=== PATIENT | female | born 1995 | race Caucasian/White ===

== ENCOUNTER 2021-08-17 03:13 | Emergency (ER) | payer MEDICARE, OTHER ==
[~2021-08-17] VITALS: Ht 162.5 cm; Wt 78.7 kg
[2021-08-17] MEDS ORDERED: ONDANSETRON 4 MG/2 ML (SDV) Z0FRAN IVP STA (03:25)
[2021-08-17] MEDS ORDERED: KETOROLAC 30 MG/ML VIAL IVP STA (03:25)
[2021-08-17] MEDS ORDERED: NS IV 1000 ML 1,000 ML IV STA (03:25)
[2021-08-17] MEDS ORDERED: ASPIRIN 81 MG CHEW (CHILDREN'S ASA) PO ONE (03:30)
[2021-08-17] MEDS ORDERED: Lithium (03:32)
[2021-08-17] MEDS ORDERED: Geodon (03:32)
--- NOTE | 2021-08-17 03:33 | ED General ---
General Chief Complaint: Chest Pain Stated Complaint: LEFT SHOULF PSIN/CHESTPAIN/SOB Source of Information: Patient, Spouse History of Present Illness Date Seen by Provider: August 17, 2021 Time Seen by Provider: 03:15 Initial Comments 26-year-old female presenting with complaints of left-sided chest pain. She states that this is going down her left arm. She has reproducible chest pain with palpation. This reportedly started around 215 to 220 a.m. They were lying in bed when the pain started. She reportedly was "passing out" and her significant other thought that she was having a heart attack. He made her get up and get dressed so that they could come here to the emergency department. She follows with providers in the [facility] for her care. She has nonepileptic seizures and neuro cardiogenic syncope. She has several medications that she takes but they are all for psychiatric care. She states that she is allergic to prednisone. She denies doing anything to cause the pain. She did not try taking anything at home for the pain Timing/Duration: 1 Hour Severity: Moderate Modifying Factors: worse with Movement Associated Systoms: Chest Pain (Chest wall pain on the left side reproducible with palpation and movement); No Cough, No Diaphoresis, No Fever/Chills, No Headaches, No Loss of Appetite, No Malaise; Nausea/Vomiting (Nausea but no vomiting); No Rash, No Seizure, No Shortness of Air, No Syncope Allergies and Home Medications Allergies Coded Allergies: prednisone (Verified Allergy, Unknown, 08/17/21) Patient Home Medication List Home Medication List Reviewed: Yes Ibuprofen (Ibuprofen) 800 Mg Tablet, 800 MG PO Q8H PRN for PAIN Prescribed by: OLEKSANDR REA on 08/17/21352 Methocarbamol (Methocarbamol) 750 Mg Tablet, 750 MG PO Q8H PRN for chest wall pain Prescribed by: OLEKSANDR REA on 08/17/21352 [[place]] , (Reported) Entered as Reported by: PENNY QUILES on 08/17/21331 Last Action: New Order [[place]] , (Reported) Entered as Reported by: PENNY QUILES on 08/17/21331 Last Action: New Order Review of Systems Review of Systems Constitutional: No fever EENTM: no symptoms reported Respiratory: no symptoms reported Cardiovascular: see HPI Gastrointestinal: see HPI Genitourinary: no symptoms reported Musculoskeletal: see HPI Skin: No rash Psychiatric/Neurological: See HPI (Feels like she is going to pass out); Denies Headache Hematologic/Lymphatic: Denies Blood Clots Past Bphxufk-Wdsdpu-Rdbsvp Hx Past Medical History Surgery/Hospitalization HX: Pseudoseizures, neurocardiogenic syncope Physical Exam Vital Signs Vital Signs - First Documented 08/17/21 03:18 Temp 36.0 Pulse 81 Resp 16 B/P (MAP) 113/73 (86) Pulse Ox 99 O2 Delivery Room Air Capillary Refill : Height, Weight, BMI Height: '" Weight: lbs. oz. kg; BMI Method: General Appearance: No Apparent Distress, Other (Patient is talking and answering questions but keeping her eyes closed laying on the bed) HEENT: PERRL/EOMI, Pharynx Normal Neck: Full Range of Motion, Normal Inspection, Non Tender, Supple Respiratory: Lungs Clear, Normal Breath Sounds, No Accessory Muscle Use, No Respiratory Distress, Other (Tender to palpation of the left chest wall and this also reproduces her chest pain that she is complaining of) Cardiovascular: Regular Rate, Rhythm, No Edema, No Murmur, Normal Peripheral Pulses Gastrointestinal: Normal Bowel Sounds, No Pulsatile Mass, Non Tender, Soft Rectal: Deferred Extremity: Normal Capillary Refill, Normal Inspection, No Pedal Edema Neurologic/Psychiatric: Alert, Oriented x3, family assistant II-XII Norm as Tested Skin: Normal Color, Warm/Dry Progress/Results/Core Measures Suspected Sepsis SIRS Temperature: Pulse: Respiratory Rate: Laboratory Tests 08/17/21 03:20: White Blood Count 9.3 Blood Pressure / Mean: Laboratory Tests 08/17/21 03:20: Creatinine 0.69, INR Comment 0.9, Platelet Count 252, Total Bilirubin 0.2 Results/Orders Lab Results Laboratory Tests Test 08/17/21 03:20 08/17/21 04:07 Range/Units White Blood Count 9.3 4.3-11.0 10^3/uL Red Blood Count 4.10 3.80-5.11 10^6/uL Hemoglobin 12.3 11.5-16.0 g/dL Hematocrit 37 35-52 % Mean Corpuscular Volume 91 80-99 fL Mean Corpuscular Hemoglobin 30 25-34 pg Mean Corpuscular Hemoglobin Concent 33 32-36 g/dL Red Cell Distribution Width 13.0 10.0-14.5 % Platelet Count 252 130-400 10^3/uL Mean Platelet Volume 12.6 H 9.0-12.2 fL Immature Granulocyte % (Auto) 0 % Neutrophils (%) (Auto) 36 L 42-75 % Lymphocytes (%) (Auto) 51 H 12-44 % Monocytes (%) (Auto) 9 0-12 % Eosinophils (%) (Auto) 3 0-10 % Basophils (%) (Auto) 1 0-10 % Neutrophils # (Auto) 3.4 1.8-7.8 10^3/uL Lymphocytes # (Auto) 4.7 H 1.0-4.0 10^3/uL Monocytes # (Auto) 0.9 0.0-1.0 10^3/uL Eosinophils # (Auto) 0.3 0.0-0.3 10^3/uL Basophils # (Auto) 0.1 0.0-0.1 10^3/uL Immature Granulocyte # (Auto) 0.0 0.0-0.1 10^3/uL Prothrombin Time 12.8 12.2-14.7 SEC INR Comment 0.9 0.8-1.4 Activated Partial Thromboplast Time 26 24-35 SEC Sodium Level 141 135-145 MMOL/L Potassium Level 3.4 L 3.6-5.0 MMOL/L Chloride Level 109 H 98-107 MMOL/L Carbon Dioxide Level 19 L 21-32 MMOL/L Anion Gap 13 5-14 MMOL/L Blood Urea Nitrogen 15 7-18 MG/DL Creatinine 0.69 0.60-1.30 MG/DL Estimat Glomerular Filtration Rate 123 BUN/Creatinine Ratio 22 Glucose Level 125 H 70-105 MG/DL Calcium Level 9.3 8.5-10.1 MG/DL Corrected Calcium 8.9 8.5-10.1 MG/DL Magnesium Level 2.1 1.6-2.4 MG/DL Total Bilirubin 0.2 0.1-1.0 MG/DL Aspartate Amino Transf (AST/SGOT) 16 5-34 U/L Alanine Aminotransferase (ALT/SGPT) 18 0-55 U/L Alkaline Phosphatase 46 40-136 U/L Myoglobin < 21.0 10.0-92.0 NG/ML Troponin I < 0.30 <0.30 NG/ML Pro-B-Type Natriuretic Peptide 12.1 <75.0 PG/ML Total Protein 7.0 6.4-8.2 GM/DL Albumin 4.5 3.2-4.5 GM/DL Lipase 22 8-78 U/L Serum Test, Qualitative NEGATIVE NEGATIVE Urine Color DARK YELLOW Urine Clarity CLEAR Urine pH 6.0 5-9 Urine Specific [place] >=1.030 1.016-1.022 Urine Protein NEGATIVE NEGATIVE Urine Glucose (UA) NEGATIVE NEGATIVE Urine Ketones TRACE H NEGATIVE Urine Nitrite NEGATIVE NEGATIVE Urine Bilirubin NEGATIVE NEGATIVE Urine Urobilinogen 0.2 < = 1.0 MG/DL Urine Leukocyte Esterase NEGATIVE NEGATIVE Urine RBC (Auto) 1+ H NEGATIVE Urine RBC 0-2 /HPF Urine WBC 0-2 /HPF Urine Crystals NONE /LPF Urine Bacteria FEW H /HPF Urine Casts PRESENT /LPF Urine Hyaline Casts RARE /LPF Urine Mucus LARGE H /LPF Urine Culture Indicated NO Urine Opiates Screen NEGATIVE NEGATIVE Urine Oxycodone Screen NEGATIVE NEGATIVE Urine Methadone Screen NEGATIVE NEGATIVE Urine Propoxyphene Screen NEGATIVE NEGATIVE Urine Barbiturates Screen NEGATIVE NEGATIVE Ur Tricyclic Antidepressants Screen NEGATIVE NEGATIVE Urine Phencyclidine Screen NEGATIVE NEGATIVE Urine Amphetamines Screen NEGATIVE NEGATIVE Urine Methamphetamines Screen NEGATIVE NEGATIVE Urine Benzodiazepines Screen NEGATIVE NEGATIVE Urine Cocaine Screen NEGATIVE NEGATIVE Urine Cannabinoids Screen NEGATIVE NEGATIVE My Orders Orders - OLEKSANDR REA MD Cbc With Automated Diff (08/17/21 03:25) Magnesium (08/17/21 03:25) Chest 1 View Ap/Pa Only (08/17/21 03:25) Ekg Tracing (08/17/21 03:25) Comprehensive Metabolic Panel (08/17/21 03:25) Myoglobin Serum (08/17/21 03:25) Protime With Inr (08/17/21 03:25) Partial Thromboplastin Time (08/17/21 03:25) O2 (08/17/21 03:25) Monitor-Rhythm Ecg Trace Only (08/17/21 03:25) Aspirin Chewable Tablet (Baby Aspirin Ch (08/17/21 03:30) Ed Iv/Invasive Line Start (08/17/21 03:25) Lipase (08/17/21 03:25) Troponin I Fs (08/17/21 03:25) Probnp Fs (08/17/21 03:25) Ns Iv 1000 Ml (Sodium Chloride 0.9%) (08/17/21 03:25) Ketorolac Injection (Toradol Injection) (08/17/21 03:25) Ondansetron Injection (Zofran Injectio (08/17/21 03:25) Hcg,Qualitative Serum (08/17/21 03:31) Ua Culture If Indicated (08/17/21 03:45) Drug Screen Stat (Urine) (08/17/21 03:45) Ekg Tracing (08/17/21 04:13) Urine Bedside (08/17/21 04:13) Medications Given in ED Current Medications Medications Dose Ordered Sig/Reid Route Start Time Stop Time Status Last Admin Dose Admin Aspirin 324 mg ONCE ONCE PO 08/17/21 03:30 08/17/21 03:31 DC 08/17/21 03:34 324 MG Vital Signs/I&O 08/17/21 03:18 Temp 36.0 Pulse 81 Resp 16 B/P (MAP) 113/73 (86) Pulse Ox 99 O2 Delivery Room Air Capillary Refill : Progress Note #1: Progress Note Obtain electrocardiogram as well as chest x-ray and labs including cardiac enzymes to evaluate for possible cardiac source of her pain but with her having reproducible chest wall pain that elicits her pain is more likely chest wall pain. Will try IV fluids normal saline 1 L bolus for hydration, Toradol 30 mg IV for pain and inflammation, 324 mg of aspirin p.o. for possible cardiac source of pain, 4 mg Zofran IV for nausea. Progress Note #2: Progress Note Electrocardiogram does not show any acute ischemia or arrhythmia. Chest x-ray is clear. Labs are stable without acute significant abnormality. Cardiac enzymes are negative. Drug screen and urinalysis are negative. Patient's symptoms are improved with treatment here in the ED. Reassured patient that it seems like her symptoms are all related to chest wall pain. Counseled on fol low-up and return precautions counseled on medication treatment for home. ECG Initial ECG Impression Date: August 17, 2021 Initial ECG Impression Time: 03:24 Initial ECG Rate: 83 Initial ECG Rhythm: Normal Sinus Initial ECG Comparisson: No Previous ECG Available Comment Normal sinus rhythm with a heart rate of 83 bpm. NM interval [address] elevation. QT interval 403 ms with a QTc interval 442 ms. She has no prior tracing for comparison. Diagnostic Imaging Diagonstic Imaging: Xray Plain Films/CT/US/NM/MRI: chest Comments On my review of the 1 view chest x-ray she has no acute process Reviewed: Reviewed by Me Departure Impression Primary Impression: Chest wall pain Disposition: HOME, SELF-CARE Condition: Stable Departure-Patient Inst. Decision time for Depature: 05:01 Referrals: NO,LOCAL PHYSICIAN (PCP/Family) Primary Care Physician Patient Instructions: Costochondritis (DC) Add. Discharge Instructions: Stay well-hydrated and drink plenty of fluids. Continue with anti-inflammatories and you may take muscle relaxer to try and help with the chest wall pain as well. Follow-up with your primary provider for continued concerns. You may try alternating ice and heat to chest wall to try and help with your pain. All discharge instructions reviewed with patient and/or family. Voiced understanding. Scripts Methocarbamol (Methocarbamol) 750 Mg Tablet 750 MG PO Q8H PRN for chest wall pain for 5 Days, #15 TAB 0 Refills Prov: OLEKSANDR REA MD 08/17/21 Ibuprofen (Ibuprofen) 800 Mg Tablet 800 MG PO Q8H PRN for PAIN for 10 Days, #30 TAB 0 Refills Prov: OLEKSANDR REA MD 08/17/21 Work/School Note: Family Work Note Patient Received Medical Care In the Emergency Department On: August 17, 2021 Patient Will Be Able to Return to Work/School On: August 18, 2021 Patient Restrictions: Please excuse Dion Rash for 08/17 so he may stay with OLEKSANDR Sorto MD August 17, 2021 03:33
[2021-08-17 03:41] LABS: BASOPHILS # (AUTO) 0.1 10^3/uL (0.0-0.1); BASOPHILS % (AUTO) 1 % (0-10); EOSINOPHILS # (AUTO) 0.3 10^3/uL (0.0-0.3); EOSINOPHILS % (AUTO) 3 % (0-10); HEMATOCRIT 37 % (35-52); HEMOGLOBIN 12.3 g/dL (11.5-16.0); LYMPHOCYTES # (AUTO) 4.7 10^3/uL (1.0-4.0); LYMPHOCYTES % (AUTO) 51 % (12-44); MEAN CORPUSCULAR HEMOGLOBIN 30 pg (25-34); MEAN CORPUSCULAR HGB CONC 33 g/dL (32-36); MEAN CORPUSCULAR VOLUME 91 fL (80-99); MEAN PLATELET VOLUME 12.6 fL (9.0-12.2); MONOCYTES # (AUTO) 0.9 10^3/uL (0.0-1.0); MONOCYTES % (AUTO) 9 % (0-12); NEUTROPHILS # (AUTO) 3.4 10^3/uL (1.8-7.8); NEUTROPHILS % (AUTO) 36 % (42-75); PLATELET COUNT 252 10^3/uL (130-400); WHITE BLOOD COUNT 9.3 10^3/uL (4.3-11.0)
[2021-08-17 03:50] LABS: INR 0.9 (0.8-1.4); PROTHROMBIN TIME PATIENT 12.8 SEC (12.2-14.7)
[2021-08-17] MEDS ORDERED: IBUP-1780 PO (03:53)
[2021-08-17] MEDS ORDERED: METH-732 PO (03:53)
[2021-08-17 04:09] LABS: BUN/CREATININE RATIO 22; CARBON DIOXIDE 19 MMOL/L (21-32); CHLORIDE 109 MMOL/L (98-107); CREATININE SERUM 0.69 MG/DL (0.60-1.30); GFR ESTIMATED 123; POTASSIUM 3.4 MMOL/L (3.6-5.0); SODIUM 141 MMOL/L (135-145)
[2021-08-17 04:10] LABS: ALANINE AMINOTRANSFERASE 18 U/L (0-55); ALBUMIN 4.5 GM/DL (3.2-4.5); ALKALINE PHOSPHATASE 46 U/L (40-136); BILIRUBIN,TOTAL 0.2 MG/DL (0.1-1.0); CALCIUM 9.3 MG/DL (8.5-10.1); GLUCOSE 125 MG/DL (70-105); LIPASE 22 U/L (8-78); MAGNESIUM 2.1 MG/DL (1.6-2.4)
[2021-08-17 04:27] LABS: BILIRUBIN,URINE NEGATIVE (NEGATIVE); CLARITY,URINE CLEAR; GLUCOSE, URINE (UA) NEGATIVE (NEGATIVE); KETONES,URINE TRACE (NEGATIVE); LEUKOCYTE ESTERASE ,URINE NEGATIVE (NEGATIVE); NITRITE,URINE NEGATIVE (NEGATIVE); PROTEIN,URINE NEGATIVE (NEGATIVE)
[2021-08-17 04:37] LABS: AMPHETAMINE SCREEN, URINE NEGATIVE (NEGATIVE); BARBITURATE SCREEN URINE NEGATIVE (NEGATIVE); BENZODIAZEPINES SCREEN URINE NEGATIVE (NEGATIVE); CANNABINOID SCREEN, URINE NEGATIVE (NEGATIVE); COCAINE SCREEN URINE NEGATIVE (NEGATIVE); METHADONE STAT NEGATIVE (NEGATIVE); OPIATE SCREEN URINE NEGATIVE (NEGATIVE); OXYCODONE STAT NEGATIVE (NEGATIVE); PROPOXYPHENE STAT NEGATIVE (NEGATIVE); TRICYCLIC ANTIDEPRESSANTS SCRE NEGATIVE (NEGATIVE)
[2021-08-17 04:38] LABS: HYALINE CASTS, URINE RARE /LPF
[2021-08-17 04:39] LABS: BACTERIA,URINE FEW /HPF; COLOR,URINE DARK YELLOW; RBC,URINE 0-2 /HPF; WBC,URINE 0-2 /HPF
[2021-08-17 05:04] VITALS: BP 114/74
--- NOTE | 2021-08-17 05:37 | Diagnostic Imaging Report ---
INDICATION: left chest wall pain COMPARISON: None FINDINGS: Single frontal view of the chest demonstrates normal heart size and pulmonary vascularity. The lungs are well aerated and clear. No large pleural effusion or pneumothorax is seen. The visualized osseous structures show no acute abnormalities. IMPRESSION: 1. No acute cardiopulmonary process. Dictated by: Dictated on workstation # [id number]
== END 2021-08-17 05:04 | disposition home or self-care (01) ==
LOC: ER FS 03:22
DX: R07.89 Other chest pain (principal); F44.5 Conversion disorder with seizures or convulsions; Z86.69 Personal history of other diseases of the nervous system and sense organs; Z79.899 Other long term (current) drug therapy
CPT/HCPCS: 36415; 71045; 80053; 80306; 81000; 83690; 83735; 83874; 83880; 84484; 84703; 85025; 85610; 85730; 93005; 93041

== ENCOUNTER 2021-10-05 11:16 | Emergency (ER) | payer MEDICARE ==
[~2021-10-05] VITALS: Ht 162.5 cm; Wt 75.0 kg
[~2021-10-05 11:16] MED LIST: Geodon; IBUP-1780 PO; Lithium; METH-732 PO
--- NOTE | 2021-10-05 11:21 | ED Headache ---
General Chief Complaint: Head/Cervical Problems Stated Complaint: HEADACHE; BLOOD IN VOMIT History of Present Illness Date Seen by Provider: Oct 05, 2021 Time Seen by Provider: 11:21 Initial Comments 26-year-old female with PMH of pituitary tumor diagnosed 6 years ago/migraine/neurocardiogenic syncope, is here with complaints of a migraine which began last night. Patient has only taken Tylenol for the pain at home. Patient has not had any imaging for follow-up of her pituitary tumor since it has been diagnosed 6 years ago. Patient has associated nausea and vomiting today morning along with photophobia. Patient has aura right before her migraine which consisted of blurry vision and eye pain. Patient typically only eats 1 meal a day at dinnertime, and drinks between 1 to 3 glasses of water a day. Patient also states that she is very stressed with family situations and at work. Denies trauma, falls, fever, neck pain or neck stiffness, chest pain, palpitations, dizziness, LOC. Allergies and Home Medications Allergies Coded Allergies: prednisone (Verified Allergy, Unknown, 08/17/21) Patient Home Medication List Home Medication List Reviewed: Yes Ibuprofen (Ibuprofen) 800 Mg Tablet, 800 MG PO Q8H PRN for PAIN Prescribed by: OLEKSANDR REA on 08/17/21352 Methocarbamol (Methocarbamol) 750 Mg Tablet, 750 MG PO Q8H PRN for chest wall pain Prescribed by: OLEKSANDR REA on 08/17/21352 [[place]] , (Reported) Entered as Reported by: PENNY QUILES on 08/17/21331 [[place]] , (Reported) Entered as Reported by: PENNY QUILES on 08/17/21331 Review of Systems Review of Systems Constitutional: no symptoms reported Eyes: No Symptoms Reported Ears, Nose, Mouth, Throat: no symptoms reported Respiratory: no symptoms reported Cardiovascular: no symptoms reported Gastrointestinal: no symptoms reported Genitourinary: no symptoms reported Musculoskeletal: no symptoms reported Skin: no symptoms reported Psychiatric/Neurological: Headache Past Jflswfz-Rdecmg-Pfijxf Hx Immunizations Up To Date First/Initial COVID19 Vaccinat: unvaccinated Past Medical History Surgery/Hospitalization HX: Pseudoseizures, neurocardiogenic syncope Physical Exam Vital Signs Vital Signs - First Documented 10/05/21 11:25 Temp 36.4 Pulse 94 Resp 16 B/P (MAP) 112/92 (99) Pulse Ox 99 O2 Delivery Room Air Capillary Refill : Height, Weight, BMI Height: '" Weight: lbs. oz. kg; 29.00 BMI Method: General Appearance: WD/WN HEENT: PERRL/EOMI Neck: non-tender, full range of motion, supple, normal inspection Respiratory: chest non-tender, lungs clear, normal breath sounds Gastrointestinal: non tender, soft Back: normal inspection, no vertebral tenderness Extremities: normal range of motion Psychiatric: alert, oriented x 3 [place] Nerves: normal hearing, normal speech, PERRL Coordination/Gait: normal gait Motor/Sensory: no motor deficit, no sensory deficit Skin: normal color, warm/dry Progress/Results/Core Measures Results/Orders Lab Results Laboratory Tests Test 10/05/21 11:35 Range/Units Urine Color YELLOW Urine Clarity TURBID Urine pH 6.0 5-9 Urine Specific [place] >=1.030 1.016-1.022 Urine Protein TRACE H NEGATIVE Urine Glucose (UA) NEGATIVE NEGATIVE Urine Ketones NEGATIVE NEGATIVE Urine Nitrite NEGATIVE NEGATIVE Urine Bilirubin NEGATIVE NEGATIVE Urine Urobilinogen 0.2 < = 1.0 MG/DL Urine Leukocyte Esterase NEGATIVE NEGATIVE Urine RBC (Auto) 3+ H NEGATIVE Urine RBC 5-10 H /HPF Urine WBC 10-25 H /HPF Urine Squamous Epithelial Cells 10-25 H /HPF Urine Crystals NONE /LPF Urine Bacteria LARGE H /HPF Urine Casts NONE /LPF Urine Mucus LARGE H /LPF Urine Culture Indicated YES Urine Test NEGATIVE NEGATIVE Urine Opiates Screen NEGATIVE NEGATIVE Urine Oxycodone Screen NEGATIVE NEGATIVE Urine Methadone Screen NEGATIVE NEGATIVE Urine Propoxyphene Screen NEGATIVE NEGATIVE Urine Barbiturates Screen NEGATIVE NEGATIVE Ur Tricyclic Antidepressants Screen NEGATIVE NEGATIVE Urine Phencyclidine Screen NEGATIVE NEGATIVE Urine Amphetamines Screen NEGATIVE NEGATIVE Urine Methamphetamines Screen NEGATIVE NEGATIVE Urine Benzodiazepines Screen NEGATIVE NEGATIVE Urine Cocaine Screen NEGATIVE NEGATIVE Urine Cannabinoids Screen NEGATIVE NEGATIVE My Orders Orders - KRYSTIN DRIVER MD Drug Screen Stat (Urine) (10/05/21 11:22) Hcg,Qualitative Urine (10/05/21 11:22) Ua Culture If Indicated (10/05/21 11:22) Ct Head Wo (10/05/21 11:32) Urine Culture (10/05/21 11:35) Ketorolac Injection (Toradol Injection) (10/05/21 12:45) Diphenhydramine Injection (Benadryl Inje (10/05/21 12:45) Prochlorperazine Injection (Compazine In (10/05/21 12:45) Vital Signs/I&O 10/05/21 11:25 Temp 36.4 Pulse 94 Resp 16 B/P (MAP) 112/92 (99) Pulse Ox 99 O2 Delivery Room Air Progress Progress Note : Progress Note 1. MIGRAINE: - CT HEAD: no acute findings - UDS/ UCG: negative - Toradol / Benadryl/ Compazine im STAT in ER - Advised adequate hydration, eat all 3 meals, and good sleep hygiene - Follow up with PCP within 5 to 7 days -The patient was seen in the ED, and treated appropriately to presentation at a specific point in time. Patient is informed that there is a possibility that disease and illness can evolve and change in acuity rapidly or slowly after patient is discharged from the ER. Precautionary advice given to the patient for immediate return to ER if symptoms worsen or do not resolve, and to seek emergency care sooner rather than later. Pt also advised on the importance of PCP follow up and compliance with management and follow up plan with PCP and/or specialist, as this is part of the management plan. Pt verbally expressed understanding. Diagnostic Imaging Diagonstic Imaging: CT Plain Films/CT/US/NM/MRI: head Comments [facility] [place] NAME: SABA BELTRAN [facility] REC#: [id number] PT STATUS: REG ER : 1995 PHYSICIAN: KRYSTIN DRIVER MD ADMIT DATE: 10/05/21/ER FS Draft Date of Exam:10/05/21 CT HEAD WO CLINICAL INDICATION: Patient with headache, migraine, nausea, vomiting, history of pituitary tumor. EXAM: Axial CT scan of the brain without IV contrast with coronal and sagittal reformatted images. Auto Exposure Controls were utilized during the CT exam to meet ALARA standards for radiation dose reduction. COMPARISON: None. FINDINGS: There is no evidence of acute cerebral infarct, intracranial hemorrhage, or gross mass effect. The brain parenchymal volume appears appropriate for patient's age. There is normal gomez-white matter distinction. There is no significant midline shift or herniation. There is no evidence of hydrocephalus. The basal cisterns are unremarkable. The skull, extracranial soft tissue, and orbits are unremarkable. There is moderate mucosal thickening involving the ethmoid sinus. Temporal bones show no significant abnormality. IMPRESSION: There is moderate ethmoid sinus mucosal thickening. Otherwise, unremarkable head CT. Dictated on workstation # [id number] Dict: 10/05/21 1212 Trans: 10/05/21 1224 [id number] [id number] Interpreted by: JOSE GARCIA MD Electronically signed by: Departure Impression Primary Impression: Migraine with aura Qualified Codes: G43.109 - Migraine with aura, not intractable, without status migrainosus Disposition: HOME, SELF-CARE Condition: Improved Departure-Patient Inst. Referrals: NO,LOCAL PHYSICIAN (PCP/Family) Primary Care Physician Patient Instructions: Migraines (DC) Add. Discharge Instructions: - Advised adequate hydration, eat all 3 meals, and good sleep hygiene - Follow up with PCP within 5 to 7 days - Return to ER if symptoms worsen All discharge instructions reviewed with patient and/or family. Voiced understanding. KRYSTIN DRIVER MD Oct 05, 2021 11:21
[2021-10-05 11:40] LABS: BILIRUBIN,URINE NEGATIVE (NEGATIVE); CLARITY,URINE TURBID; COLOR,URINE YELLOW; GLUCOSE, URINE (UA) NEGATIVE (NEGATIVE); KETONES,URINE NEGATIVE (NEGATIVE); LEUKOCYTE ESTERASE ,URINE NEGATIVE (NEGATIVE); NITRITE,URINE NEGATIVE (NEGATIVE); PROTEIN,URINE TRACE (NEGATIVE)
[2021-10-05 11:53] LABS: BACTERIA,URINE LARGE /HPF
[2021-10-05 11:57] LABS: AMPHETAMINE SCREEN, URINE NEGATIVE (NEGATIVE); BARBITURATE SCREEN URINE NEGATIVE (NEGATIVE); BENZODIAZEPINES SCREEN URINE NEGATIVE (NEGATIVE); CANNABINOID SCREEN, URINE NEGATIVE (NEGATIVE); COCAINE SCREEN URINE NEGATIVE (NEGATIVE); HCG,QUALITATIVE URINE NEGATIVE (NEGATIVE); METHADONE STAT NEGATIVE (NEGATIVE); OPIATE SCREEN URINE NEGATIVE (NEGATIVE); OXYCODONE STAT NEGATIVE (NEGATIVE); PROPOXYPHENE STAT NEGATIVE (NEGATIVE); TRICYCLIC ANTIDEPRESSANTS SCRE NEGATIVE (NEGATIVE)
--- NOTE | 2021-10-05 12:25 | Diagnostic Imaging Report ---
CLINICAL INDICATION: Patient with headache, migraine, nausea, vomiting, history of pituitary tumor. EXAM: Axial CT scan of the brain without IV contrast with coronal and sagittal reformatted images. Auto Exposure Controls were utilized during the CT exam to meet ALARA standards for radiation dose reduction. COMPARISON: None. FINDINGS: There is no evidence of acute cerebral infarct, intracranial hemorrhage, or gross mass effect. The brain parenchymal volume appears appropriate for patient's age. There is normal gomez-white matter distinction. There is no significant midline shift or herniation. There is no evidence of hydrocephalus. The basal cisterns are unremarkable. The skull, extracranial soft tissue, and orbits are unremarkable. There is moderate mucosal thickening involving the ethmoid sinus. Temporal bones show no significant abnormality. IMPRESSION: There is moderate ethmoid sinus mucosal thickening. Otherwise, unremarkable head CT. Dictated by: Dictated on workstation # [id number]
[2021-10-05] MEDS ORDERED: PROCHLORPERAZINE 10 MG/2ML INJ (COMPAZINE) IM ONE (12:45)
[2021-10-05] MEDS ORDERED: KETOROLAC 30 MG/ML VIAL IM ONE (12:45)
[2021-10-05] MEDS ORDERED: diphenhydrAMINE 50 MG/ML INJ (BENADRYL) IM ONE (12:45)
[2021-10-05] MEDS ORDERED: PROCHLORPERAZINE 10 MG/2ML INJ (COMPAZINE) ONE (12:54)
[2021-10-05] MEDS ORDERED: KETOROLAC 30 MG/ML VIAL ONE (12:54)
[2021-10-05] MEDS ORDERED: diphenhydrAMINE 50 MG/ML INJ (BENADRYL) ONE (12:54)
[2021-10-05 13:03] VITALS: BP 112/92
== END 2021-10-05 13:04 | disposition home or self-care (01) ==
LOC: EDUNIT# 11:16 → ER FS 11:19
DX: G43.109 Migraine with aura, not intractable, without status migrainosus (principal); Z28.310 Unvaccinated for COVID-19
CPT/HCPCS: 70450; 80306; 81000; 84703; 87077; 87088